=== PATIENT | female | born 1995 | race Caucasian/White ===

== ENCOUNTER 2018-03-13 22:02 | Emergency (ER) | payer OTHER ==
[~2018-03-13] VITALS: Ht 172.7 cm; Wt 63.0 kg
[2018-03-13 22:16] VITALS: BP 139/88
== END 2018-03-13 23:59 ==
LOC: ED 23:54
DX: J06.9 Acute upper respiratory infection, unspecified (principal); R11.10 Vomiting, unspecified
CPT/HCPCS: 71046; 99283